=== PATIENT | female | born 1980 | race Two or more races ===

== ENCOUNTER 2022-10-24 18:40 | Emergency (ER) | payer MEDICAID, OTHER ==
[~2022-10-24] VITALS: Ht 160 cm; Wt 88.9 kg
[2022-10-24] MEDS ORDERED: ONDA-144 PO (20:59)
[2022-10-24 22:33] VITALS: BP 156/81
== END 2022-10-24 22:43 | disposition home or self-care (01) ==
LOC: ER 18:40
DX: S09.90XA Unspecified injury of head, initial encounter (principal); G40.909 Epilepsy, unspecified, not intractable, without status epilepticus; W20.8XXA Other cause of strike by thrown, projected or falling object, initial encounter; Y93.89 Activity, other specified; Y92.89 Other specified places as the place of occurrence of the external cause; Y99.8 Other external cause status
CPT/HCPCS: 70450